=== PATIENT | male | born 1975 | race Caucasian/White ===

== ENCOUNTER 2023-02-24 13:59 | Emergency (ER) | payer OTHER, SELFPAY ==
--- NOTE | ~2023-02-24 | XR_ITS ---
EXAMINATION: XR tibia fibula RT 2V DATE: 02/24/2023 14:51 INDICATION: Right lower leg injury. Fall. TECHNIQUE: 2 views of right tibia and fibula were obtained. COMPARISON: Right ankle radiographs 04/04/2014 FINDINGS: Bone alignment is normal. No fracture. Joint spaces are normal. IMPRESSION: 1. Normal right tibia and fibula. Reviewed, dictated and finalized at location A.
[2023-02-24 14:06] VITALS: BP 146/76; PULSE 94; RESP 14; TEMP 36.2; O2SAT 97
--- NOTE | 2023-02-24 17:27 | PC.NURSE ---
Patient up to triage desk to inform this RN he no longer wanted to be seen. Patient stated I think I made a mistake and maybe should go to . Patient encouraged to stay but he declined. Encouraged to return with any new or worsening symptoms. Ambulatory at time of departure with steady gait.
== END 2023-02-24 17:27 | disposition left against medical advice (07) ==
PROVIDERS: Emergency Provider Emergency Medicine
DX: S89.91XA Unspecified injury of right lower leg, initial encounter (principal); X58.XXXA Exposure to other specified factors, initial encounter
CPT/HCPCS: 73590; 99199